=== PATIENT | male | born 1940 | race Caucasian/White ===

== ENCOUNTER 2016-11-24 20:48 | Emergency (ER) | payer MEDICARE ==
[2016-11-24] MEDS ORDERED: Enoxaparin Sodium 100 MG/ML SYRINGE ONE ×2 (21:05→21:07)
[2016-11-24] MEDS ORDERED: Enoxaparin Sodium 30 MG/0.3 ML SYRINGE ONE (21:07)
[2016-11-24 21:21] LABS: PTT 39.3 SEC (22.9-36.1); Prothrombin Time 12.9 SEC (12.0-14.7)
[2016-11-24 21:30] LABS: ALT (SGPT) 17 U/L (0-55); AST (SGOT) 22 U/L (5-34); Alkaline Phosphatase 47 U/L (40-150); Anion Gap 18 mmol/L (10-20); BUN (Urea Nitrogen) 20 mg/dL (8.4-25.7); Bilirubin, Total 0.7 mg/dL (0.2-1.2); CK (CPK) 85 U/L (30-200); Calc. Creatinine Clearance 0 mL/min (70-130); Calcium 9.8 mg/dL (7.8-10.44); Carbon Dioxide 21 mmol/L (23-31); Chloride 107 mmol/L (98-107); Estimated GFR-MDRD 51; Globulin 3.7 g/dL (2.4-3.5); Protein, Total 8.1 g/dL (5.8-8.1)
[2016-11-24 21:31] LABS: Troponin I 0.014 ng/mL (< 0.028)
[2016-11-24 21:32] LABS: #Basophils 0.1 thou/uL (0.0-0.2); #Eosinphils 0.3 thou/uL (0.0-0.7); #Lymphocytes 3.4 thou/uL (1.20-3.40); #Monocytes 0.6 thou/uL (0.11-0.59); #Neutrophils 3.7 thou/uL (1.40-6.50); %Basophils 1.5 % (0.0-1.0); %Eosinophils 3.8 % (0.0-10.0); %Monocytes 7.2 % (0.0-10.0); Hematocrit 48.8 % (42.0-52.0); Mean Platelet Volume 8.2 fL (7.4-10.4); Neutrophil 53 % (42-75); Red Blood Cell (RBC) Count 4.91 mill/uL (4.70-6.10); White Blood Cell (WBC) Count 8.1 thou/uL (4.8-10.8)
--- NOTE | 2016-11-24 23:39 | RAD ---
PORTABLE CHEST: Date: 11-24-16 An AP portable film at 2106 is compared with an 07-15-12 study. FINDINGS: The heart is mildly enlarged but there are no congestive findings, pleural effusions, or edema. The lungs are clear. Here is no sign of pneumonia. The trachea is midline. There is probably faint c alcification in the aortic arch. IMPRESSION: Little change since the 2011 study. POS: HOME
[2016-11-25] MEDS ORDERED: Metoprolol Tartrate 5 MG/5 ML VIAL ONE (00:12)
[2016-11-25] MEDS ORDERED: Metoprolol Tartrate 25 MG TAB PO SCH (00:30)
[2016-11-25 00:48] LABS: Troponin I 0.052 ng/mL (< 0.028)
--- NOTE | 2016-11-25 02:15 | PICIS ---
[facility] EMERGENCY RECORD TRIAGE (20:56 CHOB) TRIAGE NOTES: mid sternal chest pain that radiates down both arms that started 1 hour ago. 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 no other c/c voiced. (20:56 CHOB) PATIENT: AGE: 76, GENDER: male, : Fri1940, TIME OF GREET: Sun Nov 24, 2016 20:49, PREFERRED LANGUAGE: Bolivian, ETHNICITY: Not or , ECODE BILLING MAP: [facility], SSN: [id number], Zip Code: [address], KG WEIGHT: [phone] (est.), PHONE: , , , PERSON ID: [id number], PAYMENT: [place] Medicare, PCP: DO HICKS JOHN SCOTT. (20:56 CHOB) NAME: Eva Velasquez (21:20) COMPLAINT: HIGH RISK COMPLAINT: Chest Pain. (20:56 CHOB) ADMISSION: URGENCY: 2 Emergent, ADMISSION SOURCE: Home, TRANSPORT: CAR, BED: ER -01. 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 (21:02 CHOB) PAIN: Patient complains of pain described as, pressure, Location MID STERNAL RADIATES DOWN BILAT ARMS, Pain is constant, No aggravating factors, No efforts tried to relieve symptoms. (21:02 CHOB) IMMUNIZATIONS: Flu vaccine not up to date, Tetanus not up to date, Pneumococcal vaccine not up to date. (21:02 CHOB) SIRS SCORING: Heart Rate 140-179 (3), Temp range 96.8-101.1 (0), respiratory rate 12-24 (0), Mental Status altered: no (0), Infection or Suspected Infection: No. (21:02 CHOB) TRIAGE SCREENING: Patient denies suicidal ideation, Patient denies presence of domestic violence. (21:02 CHOB) PROVIDERS: TRIAGE NURSE: Maddison Mast RN. (20:56 CHOB) VITAL SIGNS: Pulse 129, (Irregular), Resp 18, (Non-Labored), Pain 4, (Constant), O2 Sat 96, on Room Air, Time 11/24/2016 20:49. (20:49 CHOB) BP 151/113, Pulse 152, (Irregular), Resp 19, (Non-Labored), O2 Sat 95, on Room Air, Time 11/24/2016 20:58. (20:58 CHOB) KNOWN ALLERGIES sulfacetamide (Unconfirmed) Sulfamide: Source: Patient, - REACTION/SEVERITY UNKNOWN. PT HAS OTHER ALLERGIES THAT ARE UNKNOWN CURRENT MEDICATIONS hydrochlorothiazide: CAPSULE : Strength - 12.5 mg : ORAL Patient Dose: 1 tab(s) Oral once a day (in the morning).PT NOT SURE OF DOSAGE. (FriNov 25, 2016 00:09 AADK) carolina guilleno: CAPSULE : Strength - 1,000 mg : ORAL &a-1R&a+25V*p+0X*s4532P*c202B*c15G*c2P*p-0X&a-25V&a+1R Name: Eva Velasquez : 1940 M76 MedRec: [id number] AcctNum: [id number] Prepared: FriNov 25, 2016 02:12 by Interface Page 1 of 18 pMD [facility] EMERGENCY RECORD Patient Dose: 1 cap(s) Oral 2 times a day.PT NOT SURE OF DOSAGE. (FriNov 25, 2016 00:09 AADK) Baby Aspirin: TABLET, CHEWABLE : Strength - 81 mg : ORAL Patient Dose: 81 mg Oral See Notes.EVERY FRIDAY AND FRIDAY. (FriNov 25, 2016 00:10 AADK) Metamucil: POWDER (GRAM) : Strength - 3.4 gram/12 gram : ORAL Patient Dose: Oral once a day (in the morning).PT NOT SURE OF DOSAGE. (FriNov 25, 2016 00:10 AADK) omeprazole: CAPSULE,DELAYED RELEASE (ENTERIC COATED) : Strength - 40 mg : ORAL Patient Dose: Oral once a day (in the morning).PT NOT SURE OF DOSAGE. (FriNov 25, 2016 00:11 AADK) VITAL SIGNS VITAL SIGNS: Pulse: 129 (Irregular), Resp: 18 (Non-Labored), Pain: 4 (Constant), O2 sat: 96 on Room Air, Time: 11/24/2016 20:49. (20:49 CHOB) BP: 151/113, Pulse: 152 (Irregular), Resp: 19 (Non-Labored), O2 sat: 95 on Room Air, Time: 11/24/2016 20:58. (20:58 CHOB) BP: 133/95, Pulse: 160 (Irregular), Resp: 18 (Non-Labored), Pain: 3 (Constant), O2 sat: 96 on Room Air, Time: 11/24/2016 21:30. (21:30 CHOB) BP: 158/90, Pulse: 152 (Irregular), Resp: 20 (Non-Labored), Pain: 3 (Constant), O2 sat: 96 on Room Air, Time: 11/24/2016 21:45. (21:45 CHOB) BP: 135/83, Pulse: 90 (Regular), Resp: 18 (Non-Labored), Pain: 0, O2 sat: 96 on Room Air, Time: 11/24/2016 22:00. (22:00 CHOB) BP: 1312/76, Pulse: 87 (Regular), Resp: 17 (Non-Labored), Pain: 0, O2 sat: 96 on Room Air, Time: 11/24/2016 22:15. (22:15 CHOB) BP: 129/70, Pulse: 81 (Regular), Resp: 18 (Non-Labored), Pain: 0, O2 sat: 96 on Room Air, Time: 11/24/2016 22:30. (22:30 CHOB) BP: 132/78, Pulse: 78 (Regular), Resp: 17 (Non-Labored), Pain: 0, O2 sat: 96 on Room Air, Time: 11/24/2016 23:00. (23:00 CHOB) BP: 142/71, Pulse: 68 (Regular), Resp: 17 (Non-Labored), Pain: 0, O2 sat: 96 on Room Air, Time: 11/25/2016 00:01. (FriNov 25, 2016 00:01 CHOB) BP: 146/79, Pulse: 65 (Regular), Resp: 18 (Non-Labored), Pain: 0, O2 sat: 97 on Room Air, Time: 11/25/2016 01:04. (FriNov 25, 2016 01:04 CHOB) Pulse: 68, Time: 11/25/2016 01:22. (FriNov 25, 2016 01:22 AADK) NURSING ASSESSMENT: CARDIOVASCULAR (20:56 CHOB) CONSTITUTIONAL: Complex assessment performed, Patient arrives ambulatory, Gait steady, History obtained from patient, Patient appears comfortable, Patient cooperative, Patient alert, Oriented to person, place and time, Skin warm, Skin dry, Skin normal in color, Mucous membranes pink, Mucous membranes moist, Patient is well-groomed, Patient complains of CHEST PAIN. 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 CARDIOVASCULAR: Cardiovascular assessment findings include heart rate normal, Heart rhythm normal sinus, Heart sounds normal, S1, S2, Left radial pulse +3(easily palpated, considered normal), Right radial pulse +3(easily palpated, considered normal), Left dorsalis pedis pulse +3(easily palpated, considered normal), Right dorsalis pedis pulse +3(easily palpated, considered normal), Associated with dyspnea, with exertion. RESPIRATORY/CHEST: Breath sounds clear, Respiratory assessment findings include respiratory effort easy, Respirations regular, Conversing normally, Neck and chest exam findings include trachea midline, Chest expansion equal, Chest movement symmetrical, no associated cough noted, no associated fever, no associated fume exposure. SAFETY: Side rails up, Cart/Stretcher in lowest position, Family at bedside, Call light within reach, Hospital ID band on. NURSING PROCEDURE: BEDSIDE SIRS TESTING (FriNov 25, 2016 01:40 CHOB) SCORES: Heart Rate 55-109 (0), Temp range 96.8-101.1 (0), respiratory rate 12-24 (0), Latest WBC 3-14.9 (0), Mental Status altered: no (0), Infection or Suspected Infection: No. NURSING PROCEDURE: THREAD TWISTER (20:56 CHOB) PATIENT IDENTIFIER: Patient actively involved in identification process, Patient's identity verified by patient stating name, Patient's identity verified by patient stating date. THREAD TWISTER: Cardiac monitoring indicated for complaint of chest pain, Cardiac monitoring indicated for compliant of an irregular heart rate, Patient placed on monitor and storage bin tender, Heart rate: 156, showing atrial fibrillation, without ectopy, with no ST segment changes, Strip posted on chart, Patient placed on non-invasive blood pressure monitor, with disposable blood pressure cuff applied, Patient placed on continuous pulse oximetry, Adult/pediatric oxisensor applied, Oxygen saturation 96%. FOLLOW-UP: After procedure, alarms set and on, After procedure, patient tolerating monitoring. NOTES: Emotional support needed and given. SAFETY: Side rails up, Cart/Stretcher in lowest position, Family at bedside, Call light within reach, Hospital ID band on. NURSING PROCEDURE: EKG CHART PATIENT IDENTIFIER: Patient's identity verified by patient stating name, Patient's identity verified by patient stating date. (20:56 CHOB) Patient actively involved in identification process, Patient's identity verified by patient stating name, Patient's identity verified by patient stating date. (22:06 CHOB) &a-1R&a+25V*p+0X*a6326L*c202B*c15G*c2P*p-0X&a-25V&a+1R Name: Eva Velasquez : 1940 M76 MedRec: [id number] AcctNum: [id number] Prepared: FriNov 25, 2016 02:12 by Interface Page 3 of 18 D [facility] EMERGENCY RECORD EKG: EKG indicated for complaint of an irregular heart beat, 12 lead EKG performed on the left chest, done by TERESA DUTTA, second EKG. (22:06 CHOB) EKG indicated for complaint of chest pain, EKG indicated for complaint of an irregular heart beat, 12 lead EKG performed on the left chest, done by TERESA GIL, first EKG, COMPLETED AT 2050. (20:56 CHOB) FOLLOW-UP: After procedure, EKG for interpretation given to Dr. SERRANO. (20:56 CHOB) NOTES: Emotional support needed and given. (20:56 CHOB) Emotional support needed and given. (22:06 CHOB) SAFETY: Side rails up, Cart/Stretcher in lowest position, Family at bedside, Call light within reach, Hospital ID band on. (20:56 CHOB) Side rails up, Cart/Stretcher in lowest position, Family at bedside, Call light within reach, Hospital ID band on. (22:06 CHOB) NURSING PROCEDURE: INTAKE AND OUTPUT INTAKE AND OUTPUT: Total Intake (ml): 0ml, Urine output(ml): 425, Total Output (ml): 425ml, Grand Total: Output is greater than intake by 425mls, Notes: THIS WAS A TOTAL OF 3 VOIDS. (22:16 AADK) Total Intake (ml): 0ml, Urine output(ml): 200, Total Output (ml): 200ml, Grand Total: Output is greater than intake by 200mls. (22:15 CHOB) SAFETY: Side rails up, Cart/Stretcher in lowest position, Family at bedside, Call light within reach, Hospital ID band on. (22:15 CHOB) NURSING PROCEDURE: IV PATIENT IDENITIFIER: Patient actively involved in identification process, Patient's identity verified by patient stating name, Patient's identity verified by patient stating date. (21:00 AADK) IV SITE 1: IV therapy indicated for medication administration, IV established, to the right antecubital, using an 18 gauge catheter, in one attempt, IV site prepped with Chlorhexidine, Saline lock established, Flushed with normal saline (mls): 10, Labs drawn at time of placement, labeled in the presence of the patient and sent to lab. (21:00 AADK) IV SITE 2: IV therapy indicated for medication administration, IV established, to the left antecubital, to LEFT HAND, using an 18 gauge catheter, in two attempts, Unable to obtain IV access, Notes: ATTEMPTED 2 MORE IV SITES WITH BOTH 18 AND 20 GAUGE CATHS WITHOUT SUCCESS. EXCELLENT BLOOD RETURN BUT VEIN BLEW WHEN LINE FLUSHED WITH NS. (21:25 AADK) IV SITE 3: IV therapy indicated for hydration, IV therapy indicated for medication administration, IV established, to the right forearm, to LFA, using a 20 gauge catheter, in two attempts, Unable to obtain IV access, Notes: FIRST ATTEMPT SITE &a-1R&a+25V*p+0X*[id number]*c202B*c15G*c2P*p-0X&a-25V&a+1R Name: Eva Velasquez : 1940 M76 MedRec: [id number] AcctNum: [id number] Prepared: FriNov 25, 2016 02:12 by Interface Page 4 of 18 pMD [facility] EMERGENCY RECORD WOULD NOT THREAD. SECOND ATTEMPT PT PULLED ARM BACK, AFTER IV WAS INSERTED AND NURSE WAS ABOUT TO TAPE SITE, STATING THE IV HURT GOING IN AND HE DIDNT WANT A SECOND IV AND IF THE OTHER HOSPITAL WANTS IT THEY CAN DO IT THERE. (21:40 CHOB) NURSING PROCEDURE: NURSE NOTES NURSES NOTES: Patient is improving, Patient in no apparent distress, Patient resting quietly, Notes: CARDIZEM DRIP STOPPED PER VERBAL ORDER FROM DR SERRANO. HR 80'S, SR. EXPLAINED THIS TO PT AND SPOUSE. BOTH VOICED UNDERSTANDING. (22:12 AADK) Notes: PT ADVISED OF NPO STATUS, AND RATIONAL, UNTIL FUTHER NOTICE AND HEAD START TEACHER OFFERED PT A URINAL, WITH RATIONALE, WHEN PT VOICED NEED TO VOID. PT STATES ER STAFF NURSES ARE "RUDE AND MEAN" BY NOT ALLOWING PT TO EAT/DRINK OR WALK TO THE TOILET. HEAD START TEACHER AGAIN ADVISED PT OF NEED FOR/IMPORTANCE OF NPO STATUS AND BEDREST, WITH PT THEN ASKED TERESA GIL IF HE COULD EAT/DRINK/AMBULATE TO TOILET WITH TERESA GIL EXPLAINING RATIONALE OF NPO/BED REST STATUS WITH PT AGAIN STATING NURSES WERE MEAN AND RUDE. HEAD START TEACHER APOLOGIZED TO PT THAT HE FELT IF WE WERE BEING RUDE OR MEAN WITH REASSURANCE GIVEN THAT WE ARE ONLY TRYING TO PROVIDE THE BEST POSSIBLE CARE AND SOON DR SERRANO CLEARS PT TO AMBULATE/EAT/DRINK NURSES WILL PROVIDE FLUID/OPPORTUNITY TO AMBULATE WITH PT REPLYING, "WHAT EVER.". (21:05 CHOB) Notes: DR SERRANO ADVISED BY HEAD START TEACHER THAT PT IS NSR WITH HR IN THE 80'S THAT INCREASE TO 120'S WITH SINUS TACHYCARDIA WHEN STANDING TO USE THE URINAL THAT RETURNS TO 80'S/NSR WHEN PT RETURNS TO LYING/RESTING STATUS WITH ORDERS RECIEVED TO STOP CARDIZEM DRIP, OBTAIN EKG, CONTINUE IVF PREVIOUSLY ORDERED, CONTINUE NPO/BED REST STATUS, AND WE WILL MONITOR PT. PT AND ADVISED OF POC WITH VERBAL UNDERSTANDING. PT C/O IV TO RAC STATING IT HURTS WHEN HE BENDS HIS ARM WITH HEAD START TEACHER ADVISING PT THAT WHILE NURSE IS IN NO WAY TRYING TO BE RUDE/SNARKY/UNPLEASANT, THE BEST ADVISED THAT CAN BE GIVEN TO THE PT IS TO NOT BEND THE ARM TO THE BEST OF THE ABILITY AT THE IV IS TO REMAIN IN PLACE UNTIL DR SERRANO DECIDES ON DISPOSITION WITH PT AGAIN CALLING "YOU NURSES" RUDE BY NOT GIVING HIM WHAT HE WANTS. HEAD START TEACHER ASKED PT WHAT EXACTLY HE WANTED AT THIS MOMENT THAT I AM NOT GIVING HIM AND HE SAID WATER/AMBULATION TO TOILET AND IV REMOVED WITH HEAD START TEACHER ADVISING PT THE NURSE IF FOLLOWING PHYSICAN INSTRUCTIONS BUT PT IS ABLE TO SIGN A REFUSAL FOR TREATMENT TO HAVE IV REMOVED IF HE DOES DESIRE TO DO SO, INSTRUCTING PT OF HIS PT RIGHTS WITH PT STATING HE DECLINES TO SIGN REFUSAL. HEAD START TEACHER THANKED THE PT FOR ALLOWING MYSELF AND STAFF TO CARE FOR HIM AND ASSURED PT THAT THE BEST CARE POSSIBLE IS BEING PROVIDED WITH HEAD START TEACHER APOLOGIZING FOR THE INCONVIENENCE THE NPO/BED REST AND IV ARE CAUSING WHILE REASSURING/VALIDATING PT FEELINGS WHILE AGAIN EMPHASIZING THE IMPORTANCE OF INTERVENTIONS, WITH PT REPLYING "OK". IS AT BEDSIDE WITH NO FUTHER C/C VOICED OR NOTED. (22:00 CHOB) Patient in no apparent distress, Patient states decreased pain, Assistance offered to patient, Patient is awaiting disposition, Patient re-positioned to semi-Regalado's position, Notes: ASSITED &a-1R&a+25V*p+0X*[id number]*c202B*c15G*c2P*p-0X&a-25V&a+1R Name: Eva Velasquez : 1940 M76 MedRec: [id number] AcctNum: [id number] Prepared: FriNov 25, 2016 02:12 by Interface Page 5 of 18 pMD [facility] EMERGENCY RECORD PT WITH USE OF URINAL AT BEDSIDE WITHOUT INCIDENT. CONTINUE WITH NPO/BEDREST STATUS WITH PT VERBALIZING DISLIKE BUT UNDERSTANDING. NO ACUTE DISTRESS NOTED. (22:15 CHOB) Patient in no apparent distress, Notes: UPON STOPPING CARDIZEM DRIP, PT STATED HIS IV SITE TO RIGHT AC WAS "HURTING." ASSESSED IV SITE, NO REDNESS, SWELLING OR CHANGE IN TEMPERATURE NOTED. NS INFUSING WITHOUT DIFFICULTY. PT ASKED WHY HIS IV HAD TO BE STARTED IN THAT PLACE, EXPLAINED THAT WHEN PT'S COME TO ER WITH CHEST PAIN, WE START THE IV IN THE BIGGEST AND BEST VEIN AND THAT IS IN THE ANTECUBITAL AREA. PT THEN SAID, " SO YOU'RE SAYING IT'S MY FAULT?" INFORMED PT THIS NURSE DID NOT SAY THAT AND REITERATED THAT WHEN PT'S HAVE CP, WE START IV'S IN THE BIGGEST AND BEST VEINS AND THEY ARE IN THE AC AREA. AGAIN PT SAID THIS TIME WHILE LOOKING AT HIS , " SEE SHE SAID IT'S MY FAULT." LUZMARIA CHEUNG, RN WAS ALSO AT BEDSIDE AT THE EKG MACHINE WHEN THIS CONVERSATION TOOK PLACE. THIS NURSE THEN ASKED LUZMARIA IF THE AC IS WHERE WE START IV'S WHEN PT'S COME IN WITH CP, AND HE SAID "YES" THIS IS WHERE THE IV WILL BE STARTED. PT DID NOT HAVE ANY FURTHER STATEMENTS AT THAT TIME. (22:12 AADK) Notes: HEAD START TEACHER NOTIFIED LAB OF Q3HR LABS X2. HEAD START TEACHER UPDATED PT/ ON LAB FREQUENCY/PURPOSE AND INSTRUCTED PT/ THAT PT WILL STAY IN THE ER, WHERE HE IS NOW, WHILE THE REPEAT LABS ARE BEING DONE. HEAD START TEACHER REINFORCED NEED TO REMAIN NPO/BED REST, AGAIN EDUCATING PT/ ON RATIONALE, WITH PT STATING HIS THROAT GETS DRY IF HE IS NOT ALLOWED TO HAVE WATER. PT GIVEN A SMALL AMOUNT OF ICE CHIPS TO WET MOUTH WITH PT STATING THAT WASNT ADEQUATE BUT WILL DO FOR NOW. PT ASKED WHAT WOULD HAPPEN IF HE DIDNT WANT TO STAY WITH HEAD START TEACHER EDUCATING PT/ ON PT RIGHTS INCLUDING RIGHT TO LEAVE/REFUSE TREATMENT WITH PT STATING "IM NOT SAYING I WANT TO LEAVE DONT PUT WORDS IN MY MOUTH." HEAD START TEACHER ASSURED PT THAT NO WORDS WERE BEING PUT IN HIS MOUTH, BUT NURSE WAS JUST EDUCATING PT ON HIS COMPLETE RIGHTS A PATIENT WHILE ENCOURAGING PT TO REMAIN IN THE ER INSTRUCTED BY DR SERRANO. HEAD START TEACHER GAVE PT A PILLOW, OFFERED TO TURN DOWN THE LIGHTS, WHICH HE REFUSED, PROVIDED A WARM BLANKET, WHICH PT STATED WAS NOT SATISFACTORY IT WAS TOO WARM, SO A REGULAR BLANKET WAS PROVIDED, WHICH PT STATED HE DIDNOT LIKE THE TEXTURE, HEAD START TEACHER THEN OFFERED PT A SHEET WHICH PT STATED WAS NOT WARM ENOUGH. PT KIMMIE DECIDED NOT TO COVER UP. SIDE RAILS ARE UP AND URINAL IS AT BEDSIDE. PT STATES HE MAY NEED HELP IF HAS TO STAND TO VOID WITH NURSE ENCOURAGING PT TO USE CALL LIGHT/ASK FOR HELP TO PUT RAIL DOWN WITH STATING SOMEONE NEEDS TO BE AT PT BEDSIDE 16/06 TO TEND TO NEEDS. HEAD START TEACHER ENCOURAGED PT TO REMAIN AT BEDSIDE TO ASSIST STAFF WITH ASKING IF SHE COULD BE GIVEN A BED TO SLEEP ON. HEAD START TEACHER INSTRUCTED THAT SHE MAY USE THE PT LOUNGE, SIT IN THE LOBBY, REMAIN IN THE ER ROOM, OR RETURN HOME, IF SHE WISHED BUT A BED COULDNOT BE PROVIDED. PT STATES TO HEAD START TEACHER, "YOU COULD PROBABLY BE A LITTLE MORE HELPFUL YOU KNOW." HEAD START TEACHER ASSURED THAT STAFF WILL DO OUR VERY BEST TO ACCOMODATE PT AND HIS WITHIN OUR CAPABILITIES TO MAKE THEIR STAY PLEASANT WITH PT STATING, "NOW YOUR JUST BEING A SMART MOUTH." HEAD START TEACHER APOLOGIZED TO PT AND ASSURED THAT IN NO WAY WAS THIS HEAD START TEACHER TRYING TO BE ANYTHING BUT KIND AND HELPFUL. PT STATES, &a-1R&a+25V*p+0X*c9372S*c202B*c15G*c2P*p-0X&a-25V&a+1R Name: Eva Velasquez : 1940 M76 MedRec: [id number] AcctNum: [id number] Prepared: FriNov 25, 2016 02:12 by Interface Page 6 of 18 pMD [facility] EMERGENCY RECORD "OK. THANK YOU." HEAD START TEACHER ASKED IF THERE WAS ANYTHING MORE THAT THIS HEAD START TEACHER COULD FOR PT AND HIS WITH BOTH DENYING FUTHER ASSISTANCE AT THIS TIME. PT NOW RESTING QUIETLY, LIGHTS ON PER REQUEST, WITHOUT BLANKET PER REQUEST AND URINAL/CALL LIGHT AT BEDSIDE. NO DISTRESS NOTED. (22:45 CHOB) Notes: VITAL SIGNS STABLE. WILL DECREASE VITALS TO EVERY 1 HOUR WHILE IN ER. (23:00 CHOB) Assistance offered to patient, Pillow given to patient. (23:55 AADK) Patient in no apparent distress, Patient resting quietly, Assistance offered to patient, Notes: ASKED PT IF THERE WAS ANYTHING THIS NURSE COULD DO FOR HIM AND HE SAID HE DID NOT NEED ANYTHING AT THE MOMENT. UPDATED PT ON TRANSFER STATUS- WE ARE WAITING TO HEAR FROM [facility] FOR ACCEPTANCE. PT THEN ASKED " CAN I GO BY CAR?" INFORMED PT THAT WOULD NOT PROBABLY BE BEST HIS HEART COULD START TO RACE AGAIN OR HE COULD HAVE CP AND THIS WOULD NOT BE GOOD. ALSO WE WOULD HAVE TO TAKE OUT HIS IV AND IT WOULD HAVE TO BE RESTARTED THERE. HE THEN ASKED IF THEY ARE GOING TO DRAW MORE BLOOD FROM THE IV SITE "OVER THERE." INFORMED HIM THIS NURSE IS NOT SURE WHAT THEY WILL DO ONCE HE GETS TO [facility], BUT SURE THEY WILL PROBABLY NEED MORE BLOOD WORK. THEY (THE PHYSICIANS) WILL DECIDE ONCE HE IS THERE. PT THEN READ THIS NURSE'S NAME KEN AND SAID "YOUR NAME IS MARYAM" INFORMED PT YES IT IS, HE THEN SAID "THANK YOU.". (FriNov 25, 2016 01:09 AADK) ORDER DETAILS Order Name: B type Natriuretic Peptide, Status: Active, Time: 21:02 11/24/2016, User: LOIS, - Ordered for: DO Serrano Matthew, - Entered by: DO Serrano Matthew - Sun Nov 24, 2016 21:02, - Quantity: 1, Order Name: THREAD TWISTER ED, Status: Done, Time: 21:03 11/24/2016, User: CHOB, - Ordered for: DO Serrano Matthew, - Entered by: DO Serrano Matthew - Sun Nov 24, 2016 21:02, - Quantity: 1, Order Name: Cardiac Profile w/CKMB & Troponin - I, Status: Active, Time: 21:02 11/24/2016, User: [email or web address], - Ordered for: DO Serrano Matthew, - Entered by: DO Serrano Matthew - Sun Nov 24, 2016 21:02, - Quantity: 1, Order Name: CBC with Differential, Status: Active, Time: 21:02 11/24/2016, User: MBRI, - Ordered for: DO Serrano Matthew, - Entered by: DO Serrano Matthew - Benita Nov 24, 2016 21:02, - Quantity: 1, Order Name: CK (CPK), Status: Active, Time: 21:02 11/24/2016, User: MBRI, - Ordered for: DO Serrano Matthew, - Entered by: DO Serrano Matthew - Benita Nov 24, 2016 21:02, &a-1R&a+25V*p+0X*w6396X*c202B*c15G*c2P*p-0X&a-25V&a+1R Name: Eva Velasquez : 1940 M76 MedRec: [id number] AcctNum: [id number] Prepared: FriNov 25, 2016 02:12 by Interface Page 7 of 18 D [facility] EMERGENCY RECORD - Quantity: 1, Order Name: Comprehensive Metabolic Panel, Status: Active, Time: 21:02 11/24/2016, User: MBRI, - Ordered for: DO Serrano Matthew, - Entered by: DO Serrano Matthew - Sun Nov 24, 2016 21:02, - Quantity: 1, Order Name: EKG 12 Lead in Emergency Room, Status: Active, Time: 21:02 11/24/2016, User: MBRI, - Ordered for: DO Serrano Matthew, - Entered by: DO Serrano Matthew - Sun Nov 24, 2016 21:02, - Quantity: 1, Order Name: ERRT Pulse Oximeter ER, Status: Active, Time: 21:02 11/24/2016, User: MBRI, - Ordered for: DO Serrano Matthew, - Entered by: DO Serrano Matthew - Sun Nov 24, 2016 21:02, - Quantity: 1, Order Name: Protime with INR, Status: Active, Time: 21:02 11/24/2016, User: MBRI, - Ordered for: DO Serrano Matthew, - Entered by: DO Serrano Matthew - Sun Nov 24, 2016 21:02, - Quantity: 1, Order Name: PTT, Status: Active, Time: 21:02 11/24/2016, User: LOIS, - Ordered for: DO Serrano Matthew, - Entered by: DO Serrano Matthew - Sun Nov 24, 2016 21:02, - Quantity: 1, Order Name: SALINE LOCK, Status: Done, Time: 21:03 11/24/2016, User: CHOB, - Ordered for: DO Serrano Matthew, - Entered by: DO Serrano Matthew - Sun Nov 24, 2016 21:02, - Quantity: 1, Order Name: Troponin - I, Status: Active, Time: 23:44 11/24/2016, User: LOIS, - Ordered for: DO Serrano Matthew, - Entered by: DO Serrano Matthew - Sun Nov 24, 2016 23:44, - Quantity: 1, Order Name: XR Chest 1 View Portable, Status: Active, Time: 21:02 11/24/2016, User: LOIS, - Ordered for: DO Serrano Matthew, - Entered by: DO Serrano Matthew - Sun Nov 24, 2016 21:02, - Quantity: 1. MEDICATION ADMINISTRATION SUMMARY Drug Name: diltiazem intravenous, Dose Ordered: 20 mg, Route: IV Push, Status: Canceled, Time: 21:26 11/24/2016, Drug Name: diltiazem intravenous, Dose Ordered: 5 mg/hr, Route: IV Piggy Back, Status: Canceled, Time: 21:25 11/24/2016, Drug Name: aspirin oral, Dose Ordered: 162 mg, Route: Oral, Status: Given, Time: 01:39 11/25/2016, Drug Name: meTOPROLOL tartrate oral, Dose Ordered: 25 mg, Route: &a-1R&a+25V*p+0X*q6649E*c202B*c15G*c2P*p-0X&a-25V&a+1R Name: Eva Velasquez Jeremiah : 1940 M76 MedRec: [id number] AcctNum: [id number] Prepared: FriNov 25, 2016 02:12 by Interface Page 8 of 18 pMD [facility] EMERGENCY RECORD Oral, Status: Given, Time: 00:20 11/25/2016, Drug Name: diltiazem intravenous, Dose Ordered: 5 mg/hr, Route: IV Piggy Back, Status: Given, Time: 21:35 11/24/2016, Drug Name: sodium chloride 0.9 % intravenous, Dose Ordered: 125 mL/hr, Route: IV Fluid Infusion, Status: Given, Time: 21:13 11/24/2016, Drug Name: Lovenox, Dose Ordered: 1 mg/kg, Route: Subcutaneous, Status: Given, Time: 21:12 11/24/2016, Drug Name: diltiazem intravenous, Dose Ordered: 20 mg, Route: IV Push, Status: Given, Time: 21:07 11/24/2016, Detailed record available in Medication Service section. MEDICATION SERVICE aspirin oral: Order: aspirin oral (aspirin) - Dose: 162 mg : Oral Schedule: Now Ordered by: Van Serrano DO Entered by: Van Serrano DO FriNov 25, 2016 01:31 , Acknowledged by: Maddison Mast RN FriNov 25, 2016 01:35 Documented as given by: Maddison Mast RN FriNov 25, 2016 01:39 Patient, Medication, Dose, Route and Time verified prior to administration. Amount given: 162MG, Site: Medication administered P.O., Correct patient, time, route, dose and medication confirmed prior to administration, Patient advised of actions and side-effects prior to administration, Allergies confirmed and medications reviewed prior to administration, Patient in position of comfort, Side rails up, Cart in lowest position, Family at bedside, Call light in reach. diltiazem intravenous: Order: diltiazem intravenous (diltiazem HCl) - Dose: 20 mg : IV Push Schedule: Now Ordered by: Van Serrano DO Entered by: Van Serrano DO [place] Nov 24, 2016 21:03 Documented as given by: Maddison Mast RN [place] Nov 24, 2016 21:07 Patient, Medication, Dose, Route and Time verified prior to administration. Amount given: 20MG, IV SITE #1 IVP, initial medication, Slowly, Pre-administration assessment shows O2 saturation reading 96%, Pre-administration assessment shows O2 AMT: R.A., Pre-administration assessment shows on room air, Pre-administration assessment shows Patient on monitor and storage bin tender showing atrial fibrillation, Awake and alert- acceptable, Connections checked prior to administration, Line traced prior to administration, Catheter placement confirmed via flush prior to administration, IV site without signs or symptoms of infiltration during medication administration, No swelling during administration, No drainage during administration, IV flushed after administration, Correct patient, time, route, dose and medication confirmed prior to administration, Patient advised of actions and side-effects prior to administration, Allergies confirmed and medications reviewed prior to administration, Patient in position of comfort, Side rails up, Cart in lowest position, Family at bedside, &a-1R&a+25V*p+0X*[id number]*c202B*c15G*c2P*p-0X&a-25V&a+1R Name: Eva Velasquez : 1940 M76 MedRec: [id number] AcctNum: [id number] Prepared: FriNov 25, 2016 02:12 by Interface Page 9 of 18 pMD [facility] EMERGENCY RECORD Call light in reach. : Follow Up : Response assessment performed, No signs or symptoms of allergic reaction noted, No change in symptoms, No change in heart rate, _IV SITE #1:_, Advised not to ambulate without assistance, Patient in position of comfort, Side rails up, Cart in lowest position, Family at bedside, Emotional support needed and given, Call light in reach, Attending physician aware. (21:35 CHOB) diltiazem intravenous: Order: diltiazem intravenous (diltiazem HCl) - Dose: 5 mg/hr : IV Piggy Back Schedule: Now Ordered by: Van Serrano DO Entered by: DO Benita Holt Nov 24, 2016 21:26 Documented as given by: TERESA Valladares Nov 24, 2016 21:35 Patient, Medication, Dose, Route and Time verified prior to administration. Amount given: 5 MG/HR, IV SITE #1 IVPB or drip, initial infusion, IVPB mixed in: 100ml, Fluid: 0.9NS, via primary tubing, on an IV pump, Connections checked prior to administration, Line traced prior to administration, Catheter placement confirmed via flush prior to administration, IV site without signs or symptoms of infiltration during medication administration, No swelling during administration, No drainage during administration, IV flushed after administration, Correct patient, time, route, dose and medication confirmed prior to administration, Patient advised of actions and side-effects prior to administration, Allergies confirmed and medications reviewed prior to administration, Patient in position of comfort, Side rails up, Cart in lowest position, Family at bedside, Call light in reach, CARDIZEM AND NS LINES BOTH LABELED APPROPRIATELY. : Follow Up : Response assessment performed, No signs or symptoms of allergic reaction noted, Decreased heart rate, _IV SITE #1:_, Medication infusion discontinued, on [place] Nov 24, 2016 22:12, 40 minutes, ., IV Line flushed after administration, Advised not to ambulate without assistance, Patient in position of comfort, Side rails up, Cart in lowest position, Family at bedside, Call light in reach. (22:12 AADK) : Follow Up : Response assessment performed, No signs or symptoms of allergic reaction noted, Decreased pain, Decreased symptoms, Decreased heart rate, _IV SITE #1:_, IV fluid infusion discontinued, on [place] Nov 24, 2016 22:00, 25 minutes, ., Total amount infused: 2.5ML, IV Line flushed after administration, Advised not to ambulate without assistance, Patient in position of comfort, Side rails up, Cart in lowest position, Family at bedside, Emotional support needed and given, Call light in reach, Attending physician aware, PER DR SERRANO, CARDIZEM DRIP STOPPED AT THIS TIME PT HAS CONVERTED TO NSR. WILL MONITOR PT STATUS AND ADVISED PHYSICAN OF ANY CHANGES. (22:00 CHOB) Lovenox: Order: Lovenox (enoxaparin sodium) - Dose: 1 mg/kg : Subcutaneous Schedule: Now Ordered by: Van Serrano DO &a-1R&a+25V*p+0X*[id number]*c202B*c15G*c2P*p-0X&a-25V&a+1R Name: Eva Velasquez Jeremiah MENDEZB: 1940 M76 MedRec: [id number] AcctNum: [id number] Prepared: FriNov 25, 2016 02:12 by Interface Page 10 of 18 pMD [facility] EMERGENCY RECORD Entered by: DO Benita Holt Nov 24, 2016 21:03 Documented as given by: Maddison Mast RN [place] Nov 24, 2016 21:12 Patient, Medication, Dose, Route and Time verified prior to administration. Amount given: 106MG, Medication administered to left abdomen, Correct patient, time, route, dose and medication confirmed prior to administration, Patient advised of actions and side-effects prior to administration, Allergies confirmed and medications reviewed prior to administration, Administered by TERESA GIL, Advised not to ambulate without assistance, Patient in position of comfort, Side rails up, Cart in lowest position, Family at bedside, Call light in reach. : Follow Up : Response assessment performed, No signs or symptoms of allergic reaction noted, Advised not to ambulate without assistance, Patient in position of comfort, Side rails up, Cart in lowest position, Family at bedside, Call light in reach. (22:16 AADK) meTOPROLOL tartrate oral: Order: meTOPROLOL tartrate oral (metoprolol tartrate) - Dose: 25 mg : Oral Schedule: Now Ordered by: Van Serrano DO Entered by: Van Serrano DO FriNov 25, 2016 00:10 , Acknowledged by: Maryam Perkins RN FriNov 25, 2016 00:11 Documented as given by: Maryam Perkins RN FriNov 25, 2016 00:20 Patient, Medication, Dose, Route and Time verified prior to administration. Amount given: 25 MG, Site: Medication administered P.O., Correct patient, time, route, dose and medication confirmed prior to administration, Patient advised of actions and side-effects prior to administration, Allergies confirmed and medications reviewed prior to administration, Patient in position of comfort, Side rails up, Cart in lowest position, Call light in reach. meTOPROLOL tartrate oral: Response assessment performed, No signs or symptoms of allergic reaction noted, Decreased heart rate, Advised not to ambulate without assistance, Patient in position of comfort, Side rails up, Cart in lowest position, Call light in reach, Pulse: 68. (FriNov 25, 2016 01:22 AADK) sodium chloride 0.9 % intravenous: Order: sodium chloride 0.9 % intravenous (0.9 % sodium chloride) - Dose: 125 mL/hr : IV Fluid Infusion Schedule: Now Ordered by: Van Serrano DO Entered by: Van Serrano DO [place] Nov 24, 2016 21:03 Documented as given by: Maryam Perkins RN [place] Nov 24, 2016 21:13 Patient, Medication, Dose, Route and Time verified prior to administration. Amount given: 1000 ML, IV SITE #1 IV fluids established for hydration, IV SITE #1 into right antecubital, IV SITE #1 1st bag hung, amount 1 Liter hung, IV SITE #1 Rate of infusion (non-bolus) Infusing at 125 ml/hr, via primary tubing, IV SITE #1 on IV pump, Connections checked prior to administration, Line traced prior to administration, Catheter placement confirmed via flush prior to &a-1R&a+25V*p+0X*w7045D*c202B*c15G*c2P*p-0X&a-25V&a+1R Name: Eva Velasquez : 1940 M76 MedRec: [id number] AcctNum: [id number] Prepared: FriNov 25, 2016 02:12 by Interface Page 11 of 18 pMD [facility] EMERGENCY RECORD administration, IV site without signs or symptoms of infiltration during medication administration, No swelling during administration, No drainage during administration, IV flushed after administration, Correct patient, time, route, dose and medication confirmed prior to administration, Patient advised of actions and side-effects prior to administration, Allergies confirmed and medications reviewed prior to administration, Patient in position of comfort, Side rails up, Cart in lowest position, Family at bedside, Call light in reach. (CANCELED) diltiazem intravenous: Order: diltiazem intravenous (diltiazem HCl) - Dose: 5 mg/hr : IV Piggy Back Schedule: Now Ordered by: Van Serrano DO Entered by: DO Benita oHlt Nov 24, 2016 21:25 Canceled by: Van Serrano DO. [place] Nov 24, 2016 21:25 Cancel reason: Change in medication plan. (CANCELED) diltiazem intravenous: Order: diltiazem intravenous (diltiazem HCl) - Dose: 20 mg : IV Push Schedule: Now Ordered by: Van Serrano DO Entered by: DO Benita Holt Nov 24, 2016 21:24 Canceled by: Van Serrano DO. [place] Nov 24, 2016 21:26 Cancel reason: Change in medication plan. HPI PALPITATIONS (21:04 MBRI) CHIEF COMPLAINT: Patient presents for evaluation of heart pounding, Patient presents for evaluation of heart racing, Patient presents for evaluation of irregular heart beat, Patient presents for evaluation of Mild SOB and CP over past several hours. HISTORIAN: History provided by patient. LOCATION: Symptoms are generalized, No radiation of pain, Pain has not moved in location over time. QUALITY: Unable to describe the quality of the pain. SEVERITY: Maximum severity of symptoms moderate, Currently symptoms are moderate. TIME COURSE: Sudden onset of symptoms, 3, hours prior to arrival, There has been no change in the patient's symptoms over time, are constant. ASSOCIATED WITH: No associated anxiety, Associated with chest pain, No associated chills, No associated decongestant use, No associated diaphoresis, No associated dizziness, Not associated with exertion, No associated headache, No associated nausea, Associated with shortness of breath, No associated stress, No associated syncope, No associated vertigo, No associated vomiting. EXACERBATED BY: Patient's condition exacerbated by exercise, Patient's condition exacerbated by movement, Patient's condition exacerbated by walking. RELIEVED BY: Patient's condition relieved by nothing. ROS (21:04 MBRI) &a-1R&a+25V*p+0X*[id number]*c202B*c15G*c2P*p-0X&a-25V&a+1R Name: Eva Velasquez : 1940 M76 MedRec: [id number] AcctNum: [id number] Prepared: FriNov 25, 2016 02:12 by Interface Page 12 of 18 pMD [facility] EMERGENCY RECORD CONSTITUTIONAL: Negative constitutional review of systems, Historian denies chills, denies fever. EYES: Historian denies eye pain, denies photophobia, denies vision changes. ENT: Historian denies dysphagia, denies dysphasia, denies dysphonia, denies rhinorrhea, Historian denies sore throat. CARDIOVASCULAR: Historian reports chest pain, radiation to, the arm, Historian denies diaphoresis, reports dyspnea on exertion, denies edema, denies orthopnea, denies paroxysmal nocturnal dyspnea, denies syncope, reports palpitations. RESPIRATORY: Historian reports cough, reports shortness of breath, denies sputum, denies stridor, denies wheezing. GI: Negative gastrointestinal review of systems, Historian denies abdominal pain, denies diarrhea, denies nausea, denies vomiting. GENITOURINARY MALE: Negative genitourinary review of systems. MUSCULOSKELETAL: Historian denies injury, Denies any musculoskeletal pain. SKIN: Negative skin review of systems, Historian denies skin changes. NEUROLOGIC: Negative neurologic review of systems, Historian denies focal weakness, denies sensory changes. HEMO/LYMPHATIC: Historian denies abnormal blood clotting, reports easy bruising. PAST MEDICAL HISTORY MEDICAL HISTORY: Notes: TDAP WITHIN 10 YEARS. NO FLU THIS SEASON. NO PNEUMONIA ATROPHY OF PARIETAL AND FRONTAL LOBES, UNK CAUSE, Flu vaccine not up to date, Tetanus not up to date, Pneumococcal vaccine not up to date. (20:56 CHOB) MALE SURGICAL HISTORY: HERNIA REPAIR X3. (20:56 CHOB) PSYCHIATRIC HISTORY: Notes: DENIES. (FriNov 24, 2016 20:56 CHOB) SOCIAL HISTORY: Social History includes DENIES TOBACCO, DRUG OR ETOH USE/HISTORY. (20:56 CHOB) FAMILY HISTORY: Family istory is not significant. (20:56 CHOB) NOTES: PT ASKED THIS NURSE TO ADD THAT HE IS "PRE DIABETIC" TO HIS CHART. INFORMED PT THIS NURSE WILL ADD PER HIS REQUEST. (FriNov 25, 2016 01:35 AADK) PHYSICAL EXAM CONSTITUTIONAL: Vital Signs Reviewed, Nursing notes reviewed. (21:04 MBRI) HEAD: Head exam included findings of head atraumatic, normocephalic. (21:04 MBRI) EYES: Eye exam included findings of eyelids normal to inspection, Pupils equally round and reactive to light, Extraocular muscles intact. (21:04 MBRI) &a-1R&a+25V*p+0X*v5582Z*c202B*c15G*c2P*p-0X&a-25V&a+1R Name: Eva Velasquez : 1940 M76 MedRec: [id number] AcctNum: [id number] Prepared: FriNov 25, 2016 02:12 by Interface Page 13 of 18 pMD [facility] EMERGENCY RECORD ENT: Pharynx exam normal, Mouth exam normal. (21:07 MBRI) NECK: Neck exam normal, Neck exam included findings of normal range of motion, Trachea midline. (21:04 MBRI) RESPIRATORY CHEST: Respiratory exam included findings of no respiratory distress, Breath sounds clear, No wheezing, No rales, No rhonchi. (21:04 MBRI) CARDIOVASCULAR: Cardiovascular exam included findings of, rate tachycardic, rhythm irregularly irregular, Heart sounds normal, normal S1, normal S2, no murmurs, Carotids normal, Femoral pulses normal, Pedal pulses normal. (21:04 MBRI) ABDOMEN MALE: Abdominal exam included findings of abdomen nontender, Bowel sounds normal, no distension, no pulsatile masses, no peritoneal signs, no rigidity, no guarding, no rebound. (21:04 MBRI) BACK: Back exam included findings of normal inspection, no tenderness. (21:04 MBRI) UPPER EXTREMITY: Upper extremity exam included findings of inspection normal, Range of motion normal, Motor strength normal, Radial pulse normal, no cyanosis, no clubbing, no edema. (21:04 MBRI) LOWER EXTREMITY: Lower extremity exam included findings of inspection normal, Range of motion normal, Motor strength normal, Posterior tibial pulse normal, Opal's negative, no cyanosis, no clubbing, no edema, no calf tenderness, no palpable cords. (21:04 MBRI) NEURO: Neuro exam findings include patient oriented to person, place and time, Speech normal, Gait normal. (21:04 MBRI) SKIN: Skin exam included findings of skin warm, dry, and normal in color. (21:04 MBRI) PSYCHIATRIC: Psychiatric exam included findings of patient oriented to person place and time, Normal affect. (21:04 MBRI) LAB INTERPRETATION (22:15 MBRI) INTERPRETATION: I reviewed the lab results. EVENTS TRANSFER: Triage to Emergency Emergency Room -01. (FriNov 24, 2016 20:56 CHOB) Removed from Emergency Emergency Room -01. (FriNov 25, 2016 02:02 CHOB) RADIOLOGYINTERPRETATION (FriNov 25, 2016 01:04 MBRI) CHEST: Chest films negative. DEPUTY JAILER: Preliminary review of x-rays by, ED Physician. EKG INTERPRETATION 12 LEAD EKG INTERPRETATION: 12 lead EKG interpreted by Emergency Department Physician at time of study, 12 lead EKG shows, atrial fibrillation with rapid ventricular response, Rate (beats per minute): 133, with no ectopics, [place] normal, possible age undetermined inf infarct, possible lat ischemia with ST and T &a-1R&a+25V*p+0X*q4264E*c202B*c15G*c2P*p-0X&a-25V&a+1R Name: Eva Velasquez : 1940 M76 MedRec: [id number] AcctNum: [id number] Prepared: FriNov 25, 2016 02:12 by Interface Page 14 of 18 pMD [facility] EMERGENCY RECORD changes. No acute STEMI. (21:07 MBRI) 12 lead EKG interpreted by Emergency Department Physician at time of study, 12 lead EKG shows normal sinus rhythm, Rate (beats per minute): 87, with no ectopics, Conduction normal, [place] normal, inf infarct age undetermined, ST and T changes or possible lat ischemia. Pt symptom free on this exam. (22:17 MBRI) O2SAT INTERPRETATION (21:07 MBRI) O2SAT: Oxygen saturation interpretation: Normal. DOCTOR NOTES RE-EVALUATION: Routine re-evaluation, after observation, The patient's condition has stabilized, Pt remains symptom free and his HR remains in NSR. (23:49 MBRI) TEXT: Patient has severe symptomatic tachycardia requiring immediate intervention. Critical care has been provided to support vital organ systems (cardiovascular) in the efforts to avoid imminent life-threatening deterioration into cardiopulmonary arrest or vital organ damage such as neurological, pulmonary, or renal systems. Immediate interventions have been performed to address the patients symptomatic tachycardia (IV vasoactive medications, respiratory support) to prevent life-threatening deterioration (worsening tachycardia, CHF, Cardiac ischemia). The patients initial pulse was 130-145bpm and is now 87bpm and NSR after interventions. The patient has improved with interventions and has had a resolution of his symptoms. Explanation and discussion of findings and plan for further obs in the ED have been discussed and explained. (22:15 MBRI) second set of CE is elevated, this is likely rate related but I rec further cardiology evaluation and possible Echo given this Parox A fib episode. Plan discussed with pt and transfer to [facility] initiated at pt request. Pt stable for ground EMS. (FriNov 25, 2016 01:04 MBRI) Accepted by Dr Tran for direct admit to [facility]. (FriNov 25, 2016 01:21 MBRI) CRITICAL CARE: Time spent providing critical care to patient was 30-74 minutes, 35 minutes. (22:17 MBRI) PATIENT PLAN: The patient requires a transfer and will be transferred, per physician request, due to availability of specialty care, Transfer form completed. (FriNov 25, 2016 01:04 MBRI) PROBLEM LIST No recorded problems DIAGNOSIS (FriNov 25, 2016 01:03 MBRI) FINAL: PRIMARY: UNSPECIFIED ATRIAL FIBRILLATION, ADDITIONAL: elevated troponin r/o PR. DISPOSITION PATIENT: Disposition Type: Transfer, Disposition: [facility], Condition: Fair. (FriNov 25, 2016 01:03 MBRI) &a-1R&a+25V*p+0X*[id number]*c202B*c15G*c2P*p-0X&a-25V&a+1R Name: Eva Velasquez : 1940 M76 MedRec: [id number] AcctNum: [id number] Prepared: FriNov 25, 2016 02:12 by Interface Page 15 of 18 pMD [facility] EMERGENCY RECORD Patient left the department. (FriNov 25, 2016 02:02 CHOB) PRESCRIPTION (FriNov 25, 2016 00:11 MBRI) aspirin oral: TABLET : 81 mg : ORAL : Quantity: 1 Unit: tab(s) Route: ORAL Schedule: once a day Dispense: 30 May substitute. Refills: No Refills . NOTES: No refills. meTOPROLOL tartrate oral: TABLET : 25 mg : ORAL : Quantity: 1 Unit: tab(s) Route: ORAL Schedule: 2 times a day Dispense: 60 Unit: tab(s) May substitute. Refills: No Refills . NOTES: ^s=No refills No refills. IMAGING *EKG: Image captured from scanner. (21:21 CHOB) MONITOR STRIPS: Image captured from scanner. (21:59 CHOB) EKG #2: Image captured from scanner. (22:48 CHOB) RESULTS LABORATORY: B type Natriuretic Peptide Collection DT: Ben[place] Nov 24, 2016 21:17, B type Natriuretic Peptide 42.1 pg/mL, Range (0-100). (22:00 MBRI) Cardiac Profile w/CKMB & TropI Collection DT: [place] Nov 24, 2016 21:17, CKMB 2.4 ng/mL, Range (0-6.6), Troponin I 0.014 ng/mL, Range (< 0.028), Reference Range , 0.00 - 0.028 ng/mL Negative 0.029 - 0.29 ng/mL , Indeterminate Greater or Equal to 0.3 ng/mL Strongly suggests PR , . (22:00 MBRI) CBC with Differential Collection DT: [place] Nov 24, 2016 21:13, White Blood Cell (WBC) Count 8.1 thou/uL, Range (4.8-10.8), Red Blood Cell (RBC) Count 4.91 mill/uL, Range (4.70-6.10), Hemoglobin 17.3 g/dL, Range (14.0-18.0), Hematocrit 48.8 %, Range (42.0-52.0), *Mean Corpuscular Volume 99.4 - H fl, Range (80.0-94.0), *Mean Corpuscular Hemoglobin 35.2 - H pg, Range (27.0-31.0), Mean Corpuscular HGB CONC 35.4 g/dL, Range (32.0-36.0), RBC Distribution Width 11.9 %, Range (11.5-14.5), Platelet Count 201 thou/uL, Range (130-400), Mean Platelet Volume 8.2 fL, Range (7.4-10.4), %Neutrophils 45.6 %, Range (42.0-75.0), %Lymphocytes 42.0 %, Range (21.0-51.0), %Monocytes 7.2 %, Range (0.0-10.0), %Eosinophils 3.8 %, Range (0.0-10.0), *%Basophils 1.5 - H %, Range (0.0-1.0), #Neutrophils 3.7 thou/uL, Range (1.40-6.50), #Lymphocytes 3.4 thou/uL, Range (1.20-3.40), &a-1R&a+25V*p+0X*z4765B*c202B*c15G*c2P*p-0X&a-25V&a+1R Name: Eva Velasquez : 1940 M76 MedRec: [id number] AcctNum: [id number] Prepared: FriNov 25, 2016 02:12 by Interface Page 16 of 18 pMD [facility] EMERGENCY RECORD *#Monocytes 0.6 - H thou/uL, Range (0.11-0.59), #Eosinphils 0.3 thou/uL, Range (0.0-0.7), #Basophils 0.1 thou/uL, Range (0.0-0.2), Neutrophil 53 %, Range (42-75), Lymphocytes 40 %, Range (21-51), Monocytes 6 %, Range (0-10), Basophils 1 %, Range (0-2), PLT Morphology Comment Appears Adequate , RBC Morphology Normal . (22:00 MBRI) CK (CPK) Collection DT: [place] Nov 24, 2016 21:17, CK (CPK) 85 U/L, Range (30-200). (22:00 MBRI) Comprehensive Metabolic Panel Collection DT: [place] Nov 24, 2016 21:17, Sodium 143 mmol/L, Range (136-145), *Potassium 3.3 - L mmol/L, Range (3.5-5.1), Chloride 107 mmol/L, Range (98-107), *Carbon Dioxide 21 - L mmol/L, Range (23-31), Anion Gap 18 mmol/L, Range (10-20), BUN (Urea Nitrogen) 20 mg/dL, Range (8.4-25.7), *Creatinine 1.37 - H mg/dL, Range (0.7-1.3), Estimated GFR-MDRD 51 , Reference Range for Estimated GFR: Greater than 90, mL/min/1.73 m2 NOTE: The MDRD equation has not been validated for use, with the elderly (over 70 years of age), women, patients with, serious comorbid condition or persons with extremes of body size, muscle, mass, or nutritional status. , *Glucose 156 - H mg/dL, Range (83-110), Calcium 9.8 mg/dL, Range (7.8-10.44), Bilirubin, Total 0.7 mg/dL, Range (0.2-1.2), Protein, Total 8.1 g/dL, Range (5.8-8.1), NOTE: Plasma values are generally 0.3 to 0.5 g/dL higher than serum values, due to the presence of fibrinogen. , Albumin 4.4 g/dL, Range (3.4-4.8), *Globulin 3.7 - H g/dL, Range (2.4-3.5), Alb/Glob Ratio 1.2 g/dL, Range (1.2-2.2), Alkaline Phosphatase 47 U/L, Range (40-150), AST (SGOT) 22 U/L, Range (5-34), ALT (SGPT) 17 U/L, Range (0-55). (22:00 MBRI) PTT Collection DT: [place] Nov 24, 2016 21:13, See comment below , Anticoagulant? NONE Medical Necessity SUSPECT COAGULOPATHY , *PTT 39.3 - H SEC, Range (22.9-36.1). (22:00 MBRI) Protime with INR Collection DT: Ben[place] Nov 24, 2016 21:13, See comment below , Anticoagulant? NONE Medical Necessity SUSPECT COAGULOPATHY , Prothrombin Time 12.9 SEC, Range (12.0-14.7), INR-International Normal Ratio 0.9 , ATTENTION: READ CAREFULLY , &a-1R&a+25V*p+0X*r1687Z*c202B*c15G*c2P*p-0X&a-25V&a+1R Name: Eva Velasquez : 1940 M76 MedRec: [id number] AcctNum: [id number] Prepared: FriNov 25, 2016 02:12 by Interface Page 17 of 18 pMD [facility] EMERGENCY RECORD The, recommended therapeutic ranges for oral anticoagulant treatments are: , , Low Intensity: 1.5 - 2.0 Moderate Intensity: 2.0, - 3.0 High Intensity (1): 2.5 - 3.5 High, Intensity (2): 3.0 - 4.0 CRITICAL: >, 4.0 . (22:00 MBRI) Troponin - I Collection DT: FriNov 25, 2016 00:26, *Troponin I 0.052 - H ng/mL, Range (< 0.028), Reference Range , 0.00 - 0.028 ng/mL Negative 0.029 - 0.29 ng/mL , Indeterminate Greater or Equal to 0.3 ng/mL Strongly suggests PR , . (FriNov 25, 2016 00:57 MBRI) Min: MARIPOSA=TERESA Perkins, Maryam STEELE=TERESA Mast, Maddison MBRI=DO Serrano Matthew &a-1R&a+25V*p+0X*f8677D*c202B*c15G*c2P*p-0X&a-25V&a+1R Name: Eva Velasquez Jeremiah : 1940 M76 MedRec: [id number] AcctNum: [id number] Prepared: FriNov 25, 2016 02:12 by Interface Page 18 of 18 pMD MTDD
== END 2016-11-25 01:55 | disposition short-term general hospital (02) ==
LOC: BURERS 20:48
DX: I48.91 Unspecified atrial fibrillation (principal); R79.89 Other specified abnormal findings of blood chemistry
CPT/HCPCS: 36415; 71010; 80053; 82550; 82553; 83880; 84484; 85025; 85610; 85730; 93005; 94760; 96361; 96365; 96372; 96376; J1650; J3490

== ENCOUNTER 2016-12-03 14:43 | Outpatient (CLI) | payer MEDICARE ==
[2016-12-03 15:12] LABS: Prothrombin Time 15.5 SEC (12.0-14.7)
== END 2016-12-03 14:44 | disposition home or self-care (01) ==
LOC: BURLAB 14:43
PROVIDERS: ATTEND Family Medicine
DX: I48.91 Unspecified atrial fibrillation (principal)
CPT/HCPCS: 36415; 85610

== ENCOUNTER 2018-04-27 09:21 | Emergency (ER) | payer MEDICARE ==
[2018-04-27] MEDS ORDERED: Ondansetron HCl/PF 4 MG/2 ML Vial ONE (09:54)
[2018-04-27 09:57] LABS: ALT (SGPT) 18 U/L (8-55); AST (SGOT) 24 U/L (5-34); Albumin 4.4 g/dL (3.4-4.8); Alkaline Phosphatase 61 U/L (40-150); Anion Gap 14 mmol/L (10-20); BUN (Urea Nitrogen) 19 mg/dL (8.4-25.7); Bilirubin, Total 2.7 mg/dL (0.2-1.2); Calc. Creatinine Clearance 0 mL/min (70-130); Calcium 9.9 mg/dL (7.8-10.44); Carbon Dioxide 23 mmol/L (23-31); Chloride 106 mmol/L (98-107); Estimated GFR-MDRD 68; Globulin 2.3 g/dL (2.4-3.5); Glucose 131 mg/dL (83-110); Potassium 3.2 mmol/L (3.5-5.1); Protein, Total 6.7 g/dL (5.8-8.1); Sodium 140 mmol/L (136-145)
[2018-04-27 09:58] LABS: CKMB 3.7 ng/mL (0-6.6); Troponin I 0.015 ng/mL (< 0.028)
[2018-04-27 10:02] LABS: #Lymphocytes 1.5 thou/uL (1.20-3.40); #Monocytes 0.5 thou/uL (0.11-0.59); #Neutrophils 6.7 thou/uL (1.40-6.50); %Basophils 0.5 % (0.0-1.0); %Eosinophils 0.2 % (0.0-10.0); %Lymphocytes 17.4 % (21.0-51.0); Mean Corpuscular HGB CONC 36.8 g/dL (32.0-36.0); Mean Corpuscular Hemoglobin 32.7 pg (27.0-31.0); Mean Platelet Volume 7.1 fL (7.4-10.4); Platelet Count 124 thou/uL (130-400); RBC Distribution Width 11.7 % (11.5-14.5); Red Blood Cell (RBC) Count 4.58 mill/uL (4.70-6.10); White Blood Cell (WBC) Count 8.9 thou/uL (4.8-10.8)
[2018-04-27 10:20] LABS: Bilirubin Negative (Negative); Blood, Urine Trace (Negative); Clarity Clear (Clear); Glucose, Urine (Dipstick) Negative (Negative); Leukocyte Negative (Negative); Nitrite Negative (Negative); Protein, Urine (Dipstick) Negative (Neg-Trace); Specific Gravity, Urine 1.015 (1.005-1.030); Urobilinogen 0.2 mg/dL (0.2-1.0); pH, Urine 7.5 (5.0-9.0)
[2018-04-27 10:26] LABS: Bacteria/HPF Rare-Few HPF (None Seen); RBC/HPF 0-3 HPF (0-3); Squamous Epithelial None Seen HPF (0-3); WBC/HPF 0-3 HPF (0-3)
[2018-04-27 10:29] LABS: PLT Morphology Comment Appears Decreased; RBC Morphology Normal
== END 2018-04-27 10:33 | disposition home or self-care (01) ==
LOC: BURERS 09:21
DX: E86.0 Dehydration (principal); I25.2 Old myocardial infarction; E11.9 Type 2 diabetes mellitus without complications; K21.9 Gastro-esophageal reflux disease without esophagitis; E78.5 Hyperlipidemia, unspecified; I10 Essential (primary) hypertension; F41.9 Anxiety disorder, unspecified; F32.9 Major depressive disorder, single episode, unspecified; Z79.899 Other long term (current) drug therapy
CPT/HCPCS: 36415; 80053; 81003; 81015; 82553; 84484; 85025; 93005; J2405

== ENCOUNTER 2019-06-14 18:07 | Emergency (ER) | payer MEDICARE | END 2019-06-14 19:00 | disposition short-term general hospital (02) | LOC: BURERS 18:07 | DX: T18.108A Unspecified foreign body in esophagus causing other injury, initial encounter (principal); I25.2 Old myocardial infarction; K21.9 Gastro-esophageal reflux disease without esophagitis; K58.9 Irritable bowel syndrome, unspecified; F41.9 Anxiety disorder, unspecified; F32.9 Major depressive disorder, single episode, unspecified ==

== ENCOUNTER 2021-12-26 13:13 | Inpatient (IN) | payer MEDICARE ==
[2021-12-26] MEDS ORDERED: Acetaminophen 325 MG Suppository ONE (13:41)
[2021-12-26] MEDS ORDERED: Triple Antibiotic Oint 1 GM Packet ONE (13:41)
[2021-12-26] MEDS ORDERED: Oxymetazoline HCl 0.05% (30 ML BOT) ONE (13:44)
[2021-12-26] MEDS ORDERED: Acetaminophen 500 MG TAB ONE (13:44)
[2021-12-26 13:47] LABS: Prothrombin Time 12.9 sec (12.0-14.7)
[2021-12-26 13:49] LABS: PTT 49.6 sec (22.9-36.1)
[2021-12-26 13:56] LABS: ALT (SGPT) 41 U/L (8-55); AST (SGOT) 63 U/L (5-34); Albumin 4.2 g/dL (3.4-4.8); Alkaline Phosphatase 75 U/L (40-110); Anion Gap 15 mmol/L (10-20); BUN (Urea Nitrogen) 21 mg/dL (8.4-25.7); Bilirubin, Total 2.2 mg/dL (0.2-1.2); Calc. Creatinine Clearance 0 mL/min (70-130); Calcium 9.1 mg/dL (7.8-10.44); Carbon Dioxide 27 mmol/L (23-31); Chloride 106 mmol/L (98-107); Globulin 2.8 g/dL (2.4-3.5); Glucose 137 mg/dL (83-110); Potassium 3.4 mmol/L (3.5-5.1); Sodium 145 mmol/L (136-145)
[2021-12-26 14:04] LABS: #Basophils 0.1 thou/uL (0.0-0.2); #Lymphocytes 0.6 thou/uL (1.20-3.40); #Monocytes 0.6 thou/uL (0.11-0.59); #Neutrophils 3.7 thou/uL (1.40-6.50); %Basophils 1.3 % (0.0-1.0); %Lymphocytes 12.6 % (21.0-51.0); %Monocytes 12.4 % (0.0-10.0); %Neutrophils 73.8 % (42.0-75.0); Hemoglobin 15.2 g/dL (14.0-18.0); Mean Corpuscular HGB CONC 34.6 g/dL (32.0-36.0); Mean Corpuscular Hemoglobin 33.5 pg (27.0-31.0); Mean Corpuscular Volume 96.8 fL (78.0-98.0); Platelet Count 95 thou/uL (130-400); RBC Distribution Width 11.8 % (11.5-14.5); Red Blood Cell (RBC) Count 4.55 mill/uL (4.70-6.10); White Blood Cell (WBC) Count 5.1 thou/uL (4.8-10.8)
[2021-12-26 14:05] LABS: MDiff Complete? YES
[2021-12-26 14:07] LABS: Platelet Morphology Comment Appears Decreased
[2021-12-26 14:22] LABS: Bilirubin Small (Negative); Blood, Urine Moderate (Negative); Clarity Cloudy (Clear); Glucose, Urine (Dipstick) Negative (Negative); Ketone, Urine 15 mg/dL (Negative); Leukocyte Negative (Negative); Nitrite Negative (Negative); Protein, Urine (Dipstick) > or equal to 300 mg/dL (Neg-Trace); Specific Gravity, Urine 1.025 (1.005-1.030); Urobilinogen 0.2 mg/dL (Less than 2); pH, Urine 5.5 (5.0-9.0)
[2021-12-26 14:30] LABS: Bacteria/HPF 2+ HPF (None Seen); RBC/HPF 0-3 HPF (0-3); Squamous Epithelial None Seen HPF (0-3); WBC/HPF 0-3 HPF (0-3)
[2021-12-26 14:31] LABS: Mucous/LPF 2+ LPF (<2+)
[2021-12-26] MEDS ORDERED: cefTRIAXone\\ROCEPHIN 2 GM VIAL ONE (14:47)
[2021-12-26] MEDS ORDERED: Sodium Chloride 0.9% 100 ML ONE (14:47)
[2021-12-26 17:33] LABS: SARS-CoV-2 NAA Rapid Test DETECTED (NotDetected)
[2021-12-26 18:10] VITALS: BP 141/67; TEMP 98.5
[2021-12-26] MEDS ORDERED: Sodium Chloride 0.9% 1,000 ML IV SCH (18:30)
[2021-12-26] MEDS ORDERED: Acetaminophen 325 MG TAB PO PRN (18:30)
[2021-12-26 18:37] VITALS: BMI 27.2
[2021-12-26] MEDS ORDERED: FLU VACC QS2021-22(65YR UP)/PF 240 MCG/0.7 ML SYRINGE IM ONE (20:15)
[2021-12-27] MEDS ORDERED: cefTRIAXone\\ROCEPHIN 1 GM in Sodium Chloride 0.9% 100 ML IVPB SCH (14:00)
== END 2021-12-26 21:30 | disposition home or self-care (01) | DRG 56 ==
LOC: BURERS 13:13 → BURMED 17:01
PROVIDERS: ADMIT Family Medicine; ATTEND Family Medicine
DX: G30.9 Alzheimer's disease, unspecified (principal); U07.1 COVID-19; N39.0 Urinary tract infection, site not specified; F02.81 Dementia in other diseases classified elsewhere, unspecified severity, with behavioral disturbance; F05 Delirium due to known physiological condition; E11.9 Type 2 diabetes mellitus without complications; I48.91 Unspecified atrial fibrillation; K21.9 Gastro-esophageal reflux disease without esophagitis; E78.5 Hyperlipidemia, unspecified; I10 Essential (primary) hypertension; F41.9 Anxiety disorder, unspecified; I25.10 Atherosclerotic heart disease of native coronary artery without angina pectoris; E86.0 Dehydration; F32.A Depression, unspecified; Z88.1 Allergy status to other antibiotic agents; I25.2 Old myocardial infarction; Z88.2 Allergy status to sulfonamides
CPT/HCPCS: 36415; 51701; 71045; 80053; 81003; 81015; 83605; 85025; 85610; 85730; 87040; 87086; 94760; 96365; J0696; J2997; J3490; U0002